=== PATIENT | male | born 1955 | race Caucasian/White ===

== ENCOUNTER 2021-05-23 09:21 | Observation (INO) ==
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
[~2021-05-23 09:21] MED LIST: ACETAMINOPHEN 500 MG TAB PO SCH; CeleBREX 200 MG CAP PO SCH; GABAPENTIN 600 MG DOSE PO SCH; MIDAZOLAM HCL 1 MG/ML 2ML VIAL ONE; ceFAZolin 2000MG 2,000 MG/15 ML SYR IV SCH; fentaNYL citrate 100 MCG/2 ML VIAL ONE
[2021-05-23 10:21] LABS: Basophils # (auto) 0.03 K/uL (0-0.2); Basophils % (auto) 0.6 %; Eosinophils # (auto) 0.07 K/uL (0-0.5); Eosinophils % (auto) 1.3 %; Hemoglobin 14.2 g/dL (14.0-18.0); Immature Granulocytes # (auto) 0.01 K/uL (0.00-0.02); Immature Granulocytes % (auto) 0.2 %; Lymphocytes # (auto) 2.67 K/uL (1.2-3.4); Lymphocytes % (auto) 49.6 %; Mean Corpuscular Hemoglobin 31.3 pg (25-34); Mean Corpuscular Volume 92.5 fL (80-100); Mean Platelet Volume 11.7 fL (7.4-10.4); Monocytes % (auto) 11.2 %; Neutrophils % (auto) 37.1 %; Platelet Count 346 K/uL (130-400); RDW Coefficient of Variation 13.5 % (11.5-14.5); RDW Standard Deviation 45.8 fL (36.4-46.3); Red Blood Count 4.54 M/uL (4.7-6.1); White Blood Count 5.38 K/uL (4.8-10.8)
[2021-05-23] MEDS ORDERED: PROMETHAZINE HCL 12.5 MG in SODIUM CHLORIDE 0.9% 50 ML IV PRN ×2 (10:33→15:24)
[2021-05-23] MEDS ORDERED: FLUMAZENIL 0.1 MG/1 ML 10 ML VIAL IV PRN (10:33)
[2021-05-23] MEDS ORDERED: ONDANSETRON INJ 2 MG/ML 2 ML VIAL IV PRN ×2 (10:33→15:24)
[2021-05-23] MEDS ORDERED: fentaNYL citrate 100 MCG/2 ML VIAL IV PRN (10:33)
[2021-05-23] MEDS ORDERED: NALOXONE HCL 0.4 MG/1 ML VIAL/CARP IV PRN ×2 (10:33→15:24)
[2021-05-23] MEDS ORDERED: HYDROmorphone INJ 1 MG/ML SYRINGE IV PRN ×2 (10:33→15:24)
[2021-05-23] MEDS ORDERED: ePHEDrine sulfate 50 MG/ML AMP IV PRN (10:33)
[2021-05-23] MEDS ORDERED: LABETALOL HCL IV 5 MG/ML 20ML IV PRN (10:33)
[2021-05-23] MEDS ORDERED: ATROPINE SULFATE 0.1 MG/ML 10ML SYR IV PRN (10:33)
[2021-05-23 10:34] LABS: INR 0.9 (0.9-1.1); Partial Thromboplastin Ratio 0.9; Partial Thromboplastin Time 24.1 Seconds (21.0-31.0); Prothrombin Time 9.6 Seconds (9.0-12.0)
[2021-05-23 10:36] LABS: Mean Corpuscular Hgb Conc 33.8 g/dL (32-36)
[2021-05-23] MEDS ORDERED: LR 15ML/HR IV SCH (10:45)
[2021-05-23 11:24] LABS: Calcium 9.3 mg/dl (8.5-10.1); Creatinine Clr Calc Pharmacy 86.3 ml/min; Est GFR (African American) 103.6 ml/min; Est GFR (Non-African American) 89.4 ml/min; Potassium 3.9 mmol/L (3.5-5.1)
--- NOTE | 2021-05-23 11:59 | History & Physical Bridge Note ---
Date of Service May 23, 2021 History & Physical Bridge Note I have examined the patient, reviewed the History & Physical and in the interval since the performance of the History & Physical I have noted the following changes of clinical significance: no changes noted
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
[2021-05-23] MEDS ORDERED: ceFAZolin 330 MG/ML 1 GM VIAL ONE (12:11)
[2021-05-23] MEDS ORDERED: BUPIVACAINE/EPINEPHRINE 0.25% 1:200,000 30 ML VIAL ONE (12:11)
[2021-05-23] MEDS ORDERED: PROPOFOL IV EMULSION 10 MG/ML 20 ML VIAL IV ONE (12:57)
[2021-05-23] MEDS ORDERED: ePHEDrine sulfate 50 MG/ML SYR ONE (12:57)
[2021-05-23] MEDS ORDERED: LIDOCAINE 2% 2 ML VIAL/AMP(20MG/ML) INFIL ONE (12:57)
[2021-05-23] MEDS ORDERED: GLYCOPYRROLATE 0.2 MG/ML VIAL ONE (12:57)
[2021-05-23] MEDS ORDERED: LARYING-O-JET KIT (LTA) ONE (12:57)
[2021-05-23] MEDS ORDERED: ONDANSETRON INJ 2 MG/ML 2 ML VIAL ONE (12:57)
[2021-05-23] MEDS ORDERED: NEOSTIGMINE METHYLSULFATE 1 MG/ML 10ML VIAL ONE (12:57)
[2021-05-23] MEDS ORDERED: HYDROmorphone INJ 2 MG/ML SYR/VIAL ONE (12:57)
[2021-05-23] MEDS ORDERED: PHENYLEPHRINE 100MCG/ML 5ML SYR ONE (12:57)
[2021-05-23] MEDS ORDERED: ROCURONIUM BROMIDE 10 MG/ML 5 ML VIAL IV ONE (12:57)
[2021-05-23] MEDS ORDERED: DEXAMETHASONE SOD INJ 4 MG/ML VIAL ONE (12:57)
[2021-05-23] MEDS ORDERED: FLOSEAL HEMOSTATIC MATRIX 10ML TOP ONE (13:09)
--- NOTE | 2021-05-23 13:44 | Operative Report ---
Post Operative Report Pre & Post Diagnosis Operation Date: 05/23/21 11:05 <No data on this case meets the specified criteria> Operation Date: 05/23/21 11:05 Pre-Op Diagnosis: Spinal Stenosis Lumbar Region Post-Op Diagnosis: Spinal Stenosis Lumbar Region I identified the patient and participated in the time-out.: Yes Procedure Operation Date: 05/23/21 11:05 <No data on this case meets the specified criteria> Operation Date: 05/23/21 11:05 Actual Procedures #1 lumbar decompression with medial facetectomy and foraminotomy L4-5. #2 placement of 16 mm Coflex in the interlaminar space at L4-L5. Surgeon Erik Chance, Blade Groover Kalli Mitchell Estimated Blood Loss 40 Findings Consistent with Post-Op Diagnosis Specimens None Indications This is a 65-year-old male who presents with above-mentioned diagnosis after failing course of nonoperative care continues to struggle with severe radiculopathy is here for the above-mentioned procedure. Description of Procedure Patient was met with identified informed consent obtained. Patient was then taken to the operative suite underwent ablation placed in a prone position on a Jayjay table top Mychal frame. All bony prominences well-padded eyes inspected to ensure no external pressure placed upon them. This point the lumbar spine was prepped and draped in normal sterile fashion. Sharp dissection with the assistance of Bovie cautery was performed down to and exposing the interlaminar space at L5 for L5. Self-retaining retractors placed. Then for the midline decompression including a medial facetectomy foraminotomy at L4-5 on the right to remove all aspects of the facet cyst on the right as well as disc herniation in the foramina. After this was complete a 16mm Coflex was tapped in position and crimped into place. The incision was then copiously irrigated explored to ensure no damage to surrounding structures remaining bleeding. 10 round TYESHA drain was then inserted. The incision was then closed with 1 Vicryl in the fascia 2-0 Vicryl subcutaneously and 4 Monocryl for final skin closure. Steri- Strip sterile dressings placed. Patient will continue PACU stable condition. Please note Kalli Mitchell was present at the entire surgeon while the patient positioning complex portions of the surgery and final skin closure. I attest to the content of the Intraoperative Record and any orders documented therein. Any exceptions are noted below.
--- NOTE | 2021-05-23 14:31 | Anesthesiology Progress Note ---
Date of Service May 23, 2021 Anesthesia Post Procedure Vital Signs Vital Signs: Temp Pulse Pulse Resp BP BP Pulse Ox 05/23/21 14:20 61 13 120/65 97 05/23/21 14:10 53 L 13 127/79 98 05/23/21 14:00 61 16 129/86 96 05/23/21 13:52 36.6 C 61 21 124/74 96 05/23/21 09:55 36.3 C L 71 20 132/85 98 Pain Intensity Back: Pain Intensity: 3 Transfer of Care Handoff Completed per policy Notes Mental Status: alert / awake / arousable Patient Amnestic to Procedure: Yes Nausea / Vomiting: adequately controlled Pain: adequately controlled Airway Patency, RR, SpO2: stable & adequate BP & HR: stable & adequate Hydration State: stable & adequate Anesthetic Complications: no major complications apparent
[2021-05-23] MEDS ORDERED: ONDANSETRON 4 MG OD TAB PO PRN (15:24)
[2021-05-23] MEDS ORDERED: LORazepam 0.5 MG/1 ML VIAL IV PRN (15:24)
[2021-05-23] MEDS ORDERED: ACETAMINOPHEN 500 MG TAB PO PRN (15:24)
[2021-05-23] MEDS ORDERED: ALUMINUM/MAGNESIUM SUSP 30 ML UDC PO PRN (15:24)
[2021-05-23] MEDS ORDERED: SOD PHOSPHATE/SOD BIPHOSPHATE ENEMA 132 ML BTL PR PRN (15:24)
[2021-05-23] MEDS ORDERED: ACETAMINOPHEN 1,000 MG/100 ML VIAL IV PRN (15:24)
[2021-05-23] MEDS ORDERED: hydrOXYzine HCl 25 MG TAB PO PRN (15:24)
[2021-05-23] MEDS ORDERED: MAGNESIUM HYDROXIDE SUSP 30 ML UDC PO PRN (15:24)
[2021-05-23] MEDS ORDERED: oxyCODONE HCL IR 5 MG TAB (IMMEDIATE RELEASE) PO PRN (15:24)
[2021-05-23] MEDS ORDERED: FAMOTIDINE 20 MG TAB PO PRN (15:24)
[2021-05-23] MEDS ORDERED: METOCLOPRAMIDE HCL INJ 5 MG/ML 2 ML VIAL IV PRN (15:24)
[2021-05-23] MEDS ORDERED: traMADol HCL 50 MG TABLET PO PRN (15:24)
[2021-05-23] MEDS ORDERED: HYDROmorphone INJ 0.5 MG/0.5 ML SYR IV PRN (15:24)
[2021-05-23] MEDS ORDERED: bisacodyL 10 MG SUPP PR PRN (15:24)
[2021-05-23] MEDS ORDERED: LORazepam 0.5 MG TAB PO PRN (15:24)
[2021-05-23] MEDS ORDERED: DO NOT ADMINISTER FLU VACCINE PRN (15:24)
[2021-05-23] MEDS ORDERED: diphenhydrAMINE Capsule 25 MG CAP PO PRN (15:24)
[2021-05-23] MEDS ORDERED: DO NOT ADMINISTER PNEUMOCOCCAL VACCINE PRN (15:24)
--- NOTE | 2021-05-23 15:32 | Fluoroscopy Report ---
FL spine 1V any level CLINICAL HISTORY: L4-5 D W/COFLEX COMPARISON STUDY: None FLUOROSCOPY TIME: 12 seconds. FLUOROSCOPIC IMAGES: 1 FINDINGS: A single crosstable lateral image was obtained with a posterior probe present at L4-5. Vacu um disc phenomena is seen at this level. IMPRESSION: Evidence for posterior probe at L4-5. ACT 112: Negative or not required by law. Electronically signed by: Cleve Lofton M.D. 05/23/2021 3:30 PM
[2021-05-23] MEDS: LACTATED RINGER'S 1,000 ML IV SCH (16:38)
[2021-05-23] MEDS: KETOROLAC 30 MG/ML VIAL IV SCH ×2 (16:39→21:05)
[2021-05-23] MEDS ORDERED: lisinopril 10 MG TAB PO SCH (21:00)
[2021-05-23] MEDS ORDERED: DOCUSATE SODIUM/SENNA 50/8.6MG TAB PO SCH (21:00)
[2021-05-23] MEDS: ceFAZolin 2000MG 2,000 MG/15 ML SYR IV SCH (21:05)
[2021-05-24] MEDS: LACTATED RINGER'S 1,000 ML IV SCH (02:08)
[2021-05-24] MEDS: KETOROLAC 30 MG/ML VIAL IV SCH ×2 (03:54→10:00)
[2021-05-24] MEDS: ceFAZolin 2000MG 2,000 MG/15 ML SYR IV SCH (03:55)
[2021-05-24] MEDS: POLYETHYLENE (MIRALAX) 17 GM PACK PO SCH ×2 (06:15→11:20)
[2021-05-24] MEDS ORDERED: dexAMETHasone 6 MG in SYRINGE 0 ML IV SCH (09:00)
[2021-05-24] MEDS ORDERED: PANTOprazole 40 MG TAB PO SCH (09:00)
[2021-05-24] MEDS ORDERED: [UNRECOGNIZED DRUG - OTHER] PO SCH (09:00)
--- NOTE | 2021-05-24 09:31 | Discharge Summary ---
Date of Service May 24, 2021 Admission HPI Per Admitting Provider This is a 65-year-old male who presents with worsening back and right leg pain. After failing course of nonoperative care is here for surgical invention. Principal Diagnosis Lumbar spinal stenosis with radiculopathy Discharge Data Allergies Allergy/AdvReac Type Severity Reaction Status Date / Time No Known Allergies Allergy Unknown Verified 05/23/21 09:59 Procedures Performed Operation Date: 05/23/21 11:05 <No data on this case meets the specified criteria> Operation Date: 05/23/21 11:05 Actual Procedures p L4-5 Decompression with Coflex(Not Applicable) - Erik Chance DO Ordered Studies 05/23/21 11:05 [place] spine 1V any level Routine Hospital Course (1) Lumbar disc herniation with radiculopathy: Patient went lumbar decompression trauma resulting in the orthopedic floor postoperatively. Postop day 1 is up and ambulating pain is markedly improved. Strength testing. Subsequent discharge home. Discharge orders instructions from the chart for further review. Total Time Total Time Spent Total Time Spent (In Minutes): 20 minutes Discharge Plan Discharge Items Patient Disposition: Home - Self-Care Reason For Visit: Spinal Stenosis Lumbar Region Discharge Diagnosis: Lumbar spinal stenosis with radiculopathy Activity: As commented below Non-emergency contact: Primary Care Provider Call non-emergency contact if: you have any medication questions Follow-up/Referrals: Ely Vargas CRNP [Primary Care Provider] - Diet: Regular Addtl Attending Provider Instructions: ACTIVITY RECOMMENDATIONS: SELF CARE INSTRUCTIONS AFTER A LAMINECTOMY 1. No prolonged sitting (less than 30 minutes for the first 3 weeks after surgery). 2. No bending, lifting more than 5 pounds, or twisting (roll like a log when turning in bed). 3. You may shower 3 days after surgery if no drainage from wound. Thoroughly dry wound. Do not soak in the tub. 4. Please walk as much as you can for exercise. Gradually increase the distance that you walk as your endurance increases. 5. You may drive in 7-10 days if you are comfortable and no longer requiring pain medications. SPECIAL CARE INSTRUCTIONS: VERY IMPORTANT TO READ AND REVIEW A. Your surgical incision has been closed with a cosmetic suture under the skin that will dissolve in about 6 weeks. In 14 days, you can use a pair of clean scissors and cut the suture that is left outside of the skin at the ends of your incision. B. Complications are uncommon, but please contact us if you have any signs or symptoms of: 1. wound infection (fever higher than 102.5 degrees F, redness, separation of wound, drainage, or increasing pain from the incision) 2. blood clots in legs (pain, swelling, redness and warmth in legs) 3. urinary tract infection (fever higher than 102.5 degrees, burning upon urination or increased frequency of urination) 4. nerve problems (inability to walk on your toes or heels, numbness, loss of bowel or bladder control) 5. any other symptoms that concern you. C. Please call the office at if you have any concerns or questions about your operation or recovery. MANAGING PAIN AFTER SPINAL SURGERY 1. Narcotic medication is intended for short-term use and will be provided for surgical pain. Surgical pain usually lasts for a period of 4-6 weeks. Narcotic medication includes Percocet, Vicodin, Darvocet, Tylenol #3 or Lortab. 2. Longer-term pain is more appropriately treated with non-narcotic medication such as Tylenol ES. 3. Muscle spasm is not appropriately treated with narcotics. Muscle relaxers such as Soma, Flexeril or Skelaxin can be used along with Tylenol ES. 4. Remember that we all live with some "aches and pains". This is not unusual or uncommon after an injury or as we get older. 5. We will provide appropriate medication within the normal guidelines of their prescribed use. We will also be very cautious and aware of potential abuse and extended duration of patients' medication needs. 6. Please allow 2-3 days to process refills. Prescriptions will not be mailed but must be picked up at the office. FOLLOW UP VISIT: Keep your scheduled follow-up appointment. Any questions, please call the office at . Pending Studies at Discharge: No Stand-Alone Forms: My Waze, Smoking Cessation Medications and DC Order Prescriptions: New tramadol 50 mg tablet 50 mg PO Q6H PRN (Reason: pain, moderate) Qty: 20 RF: 0 oxycodone 5 mg tablet 5 mg PO Q6H PRN (Reason: pain, severe) Qty: 20 RF: 0 Continued multivitamin Tablet 1 tab PO QAM RF: 0 lisinopril 10 mg Tablet 10 mg PO QPM RF: 0 saw palmetto 450 mg Capsule 450 mg PO QPM RF: 0 ibuprofen 200 mg Capsule 200 mg PO Q6H PRN (Reason: Pain) RF: 0 acetaminophen 500 mg Tablet 500 mg PO Q6H PRN (Reason: Pain) RF: 0 omeprazole 20 mg Capsule,Delayed Release(Dr/Ec) 20 mg PO QAM RF: 0 Cholestrol Suplement 1 dose PO DAILY RF: 0 Discharge Orders: Discharge Order (Routine); Ordered 05/24/21 Ordered By: Erik Chance Admission Data Admit Date/Time: 05/23/21 13:48 Attending Provider: Erik Chance Admit Provider: Erik Chance Primary Care Provider: Ely Vargas
== END 2021-05-24 13:30 | disposition home or self-care (01) ==
LOC: ASU 09:21 → 3N 09:21